=== PATIENT | male | born 1995 | race Caucasian/White ===

== ENCOUNTER 2021-02-20 23:03 | Emergency (ER) | payer OTHER ==
[~2021-02-20] VITALS: Ht 180.3 cm; Wt 136.4 kg
[2021-02-20] MEDS ORDERED: NS 1,000 ML IV ONE (23:35)
[2021-02-21 02:10] VITALS: BP 154/78
== END 2021-02-21 02:16 | disposition home or self-care (01) ==
LOC: M ED 23:03
DX: Z04.89 Encounter for examination and observation for other specified reasons (principal); Z88.8 Allergy status to other drugs, medicaments and biological substances; F17.229 Nicotine dependence, chewing tobacco, with unspecified nicotine-induced disorders; F12.20 Cannabis dependence, uncomplicated

== ENCOUNTER → 2022-02-14 | Outpatient (CLI) | payer BC | LOC: M RAD 15:47 | PROVIDERS: ATTEND Physician Assistant | DX: R22.41 Localized swelling, mass and lump, right lower limb (principal) ==

== ENCOUNTER 2022-03-23 20:43 | Emergency (ER) | payer BC ==
[~2022-03-23] VITALS: Ht 180.3 cm; Wt 130.8 kg
[2022-03-23 20:44] VITALS: BP 158/74
[2022-03-24 01:32] LABS: BASO % 0.4 % (0.0-1.0); EOS # 0.2 10^3/uL (0.0-0.5); EOS % 1.8 % (0.0-3.0); HEMATOCRIT 44.3 % (42.0-52.0); LYMPH # 2.4 10^3/uL (1.5-5.0); MEAN CORPUSCULAR HEMOGLOBIN 28.5 pg (27.0-33.0); MEAN CORPUSCULAR HGB CONC 33.9 g/dl (32.0-36.5); MEAN CORPUSCULAR VOLUME 84.2 fl (80.0-96.0); MONO # 0.9 10^3/uL (0.0-0.8); NEUTROPHILS # 7.3 10^3/uL (1.5-8.5); NEUTROPHILS % 67.5 % (36.0-66.0); PLATELET COUNT, AUTOMATED 388 10^3/uL (150-450); RED BLOOD COUNT 5.26 10^6/uL (4.30-6.10); WHITE BLOOD COUNT 10.8 10^3/uL (4.0-10.0)
[2022-03-24 01:54] LABS: ERYTHROCYTE SEDIMENTATION RATE 7 mm/hr (0-15)
== END 2022-03-24 02:44 | disposition home or self-care (01) ==
LOC: M ED 20:43
DX: M79.651 Pain in right thigh (principal); I10 Essential (primary) hypertension; Z91.048 Other nonmedicinal substance allergy status

== ENCOUNTER → 2022-03-31 | Outpatient (CLI) | payer BC | LOC: M SOG 14:55 | PROVIDERS: ATTEND Orthopaedic Surgery | DX: M25.561 Pain in right knee (principal) ==

== ENCOUNTER → 2022-04-02 | Outpatient (CLI) | payer BC | LOC: M RAD 08:27 | PROVIDERS: ATTEND Orthopaedic Surgery | DX: M25.561 Pain in right knee (principal); M23.300 Other meniscus derangements, unspecified lateral meniscus, right knee ==

== ENCOUNTER 2022-04-10 02:30 | Emergency (ER) | payer BC ==
[2022-04-10 02:50] VITALS: BP 113/65
[2022-04-10] MEDS ORDERED: NS 1,000 ML IV ONE (02:55)
[2022-04-10 03:03] LABS: BASO # 0.1 10^3/uL (0.0-0.2); BASO % 0.4 % (0.0-1.0); EOS # 0.1 10^3/uL (0.0-0.5); EOS % 0.9 % (0.0-3.0); HEMATOCRIT 45.9 % (42.0-52.0); HEMOGLOBIN 15.5 g/dl (13.5-17.5); LYMPH # 3.1 10^3/uL (1.5-5.0); LYMPH % 21.9 % (24.0-44.0); MEAN CORPUSCULAR HEMOGLOBIN 28.3 pg (27.0-33.0); MEAN CORPUSCULAR HGB CONC 33.8 g/dl (32.0-36.5); MEAN CORPUSCULAR VOLUME 83.9 fl (80.0-96.0); NEUTROPHILS % 69.5 % (36.0-66.0); PLATELET COUNT, AUTOMATED 406 10^3/uL (150-450); RED BLOOD COUNT 5.47 10^6/uL (4.30-6.10); WHITE BLOOD COUNT 14.3 10^3/uL (4.0-10.0)
[2022-04-10 03:40] LABS: ACETAMINOPHEN LEVEL < 2.0 UG/ML (10.0-30.0); ALBUMIN 4.2 GM/DL (3.2-5.2); ALT/SGPT 33 U/L (12-78); BILIRUBIN,DIRECT < 0.1 MG/DL (0.0-0.2); BILIRUBIN,TOTAL 0.2 MG/DL (0.2-1.0); BLOOD UREA NITROGEN 15 MG/DL (7-18); CALCIUM LEVEL 9.5 MG/DL (8.5-10.1); CARBON DIOXIDE LEVEL 25 MEQ/L (21-32); CHLORIDE LEVEL 107 MEQ/L (98-107); CREATININE FOR GFR 0.93 MG/DL (0.70-1.30); ETHYL ALCOHOL (ETHANOL) 0.091 % (0.000-0.010); GLOMERULAR FILTRATION RATE > 60.0 (>60); GLUCOSE, FASTING 117 MG/DL (70-100); POTASSIUM SERUM 3.8 MEQ/L (3.5-5.1); SALICYLATE LEVEL < 1.7 MG/DL (5.0-30.0); SODIUM LEVEL 142 MEQ/L (136-145); TOTAL PROTEIN 8.2 GM/DL (6.4-8.2)
== END 2022-04-10 04:31 | disposition home or self-care (01) ==
LOC: M ED 02:30
DX: F10.229 Alcohol dependence with intoxication, unspecified (principal); Y90.0 Blood alcohol level of less than 20 mg/100 ml; R11.2 Nausea with vomiting, unspecified; Z91.048 Other nonmedicinal substance allergy status

== ENCOUNTER 2022-08-07 13:00 | Emergency (ER) | payer BC ==
[~2022-08-07] VITALS: Ht 180.3 cm; Wt 137.3 kg
[2022-08-07 13:08] VITALS: BP 170/80
[2022-08-07] MEDS ORDERED: AMOX875T2 PO (16:54)
[2022-08-07] MEDS ORDERED: AUGMENTIN 875 MG TAB PO ONE (17:25)
== END 2022-08-07 17:32 | disposition home or self-care (01) ==
LOC: M ED 13:00
DX: J01.90 Acute sinusitis, unspecified (principal); Z86.16 Personal history of COVID-19; I10 Essential (primary) hypertension

== ENCOUNTER → 2023-04-07 | Outpatient (CLI) | payer BC ==
[~2023-04-07] MED LIST: AMOX875T2 PO
== END ==
LOC: M WUC 07:35
PROVIDERS: ATTEND Internal Medicine
DX: Z53.9 Procedure and treatment not carried out, unspecified reason (principal)